=== PATIENT | male | born 1950 | race Caucasian/White ===

== ENCOUNTER 2017-08-01 18:59 | Emergency (ER) | payer BC ==
[2017-08-01 19:53] VITALS: O2SAT 95
[2017-08-01] MEDS ORDERED: CIPROFLOXACIN 500 MG TAB PO ONE (20:27)
--- NOTE | 2017-08-01 20:32 | ED.PDOC ---
History of Present Illness - General Chief Complaint: Problem Stated Complaint: blood in urine, no pain Time Seen by Provider: 08/01/17 19:23 Source: patient Exam Limitations: no limitations - History of Present Illness Initial Comments: The patient is a 66-year-old male presenting to the emergency room secondary to one day of hematuria. He has apparently had 4 or 5 episodes previously over the last 1-2 years. Hematuria is painless and very limited. He really only notices blood at the end of his void. No back pain. He reported his last PSA was around 2. He does not see urology. He is not having any difficulty voiding. He is not having urinary frequency. He does take saw palmetto. Timing/Duration: unsure Severity: mild Improving Factors: nothing Worsening Factors: nothing Associated Symptoms: denies symptoms Allergies/Adverse Reactions: Allergies NO KNOWN ALLERGY Allergy (Verified 08/01/17 19:53) Home Medications: Ambulatory Orders Ciprofloxacin [Cipro] 500 mg PO BID #20 tab 08/01/17 Lisinopril 40 mg PO DAILY 08/01/17 Review of Systems - Review of Systems Constitutional: States: no symptoms reported EENTM: States: no symptoms reported Respiratory: States: no symptoms reported Cardiology: States: no symptoms reported Gastrointestinal/Abdominal: States: no symptoms reported Genitourinary: States: see HPI Musculoskeletal: States: no symptoms reported Skin: States: no symptoms reported Neurological: States: no symptoms reported Endocrine: States: no symptoms reported All other Systems: No Change from Baseline Past Medical History (General) - Patient Medical History Hx Asthma: No Hx of COPD: No Hx Cardiac Disorders: No Hx Congestive Heart Failure: No Hx Hypertension: Yes Hx Diabetes: No Hx Cancer: Yes - bowels - Vaccination History Hx Tetanus, Diphtheria Vaccination: Yes Hx Influenza Vaccination: No - Social History Hx Tobacco Use: No Hx Chewing Tobacco Use: Yes Hx Alcohol Use: Yes Hx Physical Abuse: No Hx Emotional Abuse: No Hx Suspected Abuse: No Family Medical History - Family History Mother Family History: No Known Physical Exam - Physical Exam General Appearance: Alert, Comfortable, No apparent distress Eye Exam: bilateral normal Ears, Nose, Throat: hearing grossly normal Neck: full range of motion Respiratory: no respiratory distress, no accessory muscle use Cardiovascular/Chest: normal peripheral pulses, no edema Peripheral Pulses: radial,right: 2+, radial,left: 2+ Rectal Exam: deferred Back Exam: no CVA tenderness Extremity: normal range of motion, non-tender, normal inspection, no pedal edema , normal capillary refill 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 The patient has apparently had several episodes in the past. The patient urinalysis appears fairly clear today with the exception of the red blood cells. urine culture is being set up. He is empirically going to be placed on ciprofloxacin 500 twice a day for 10 days. He is going to hold his aspirin. He does need to follow up with his primary care doctor towards the end of this week for a repeat urinalysis. He should probably be set up through his primary care doctor with a urologist of his choice for further evaluation of the hematuria possibly including a cystoscopy. ER warnings were given. - Results/Orders Results/Orders: Laboratory Tests 08/01/17 19:35 Urine Color Other Urine Appearance Clear Urine pH 6.0 Ur Specific [place] <= 1.005 Urine Protein Negative Urine Glucose (UA) Negative Urine Ketones Negative Urine Blood Large H Urine Nitrite Negative Urine Bilirubin Negative Urine Urobilinogen 0.2 Ur Leukocyte Esterase Negative Urine RBC 10-20 H Urine WBC 0-1 Ur Epithelial Cells 0 Urine Bacteria Rare Departure - Departure Clinical Impression: Hematuria Qualifiers: Hematuria type: gross Qualified Code(s): R31.0 - Gross hematuria Disposition: Discharge to Home or Self Care Condition: Fair Departure Forms: ED Discharge - Pt. Copy, Patient Portal Self Enrollment Instructions: DI for Hematuria Diet: regular diet Activity: increase activity as tolerated Referrals: Abimael Hermosillo MD [Primary Care Provider] - 1-2 Weeks Prescriptions: Ciprofloxacin [Cipro] 500 mg PO BID #20 tab Home Medications: Ambulatory Orders Ciprofloxacin [Cipro] 500 mg PO BID #20 tab 08/01/17 Lisinopril 40 mg PO DAILY 08/01/17 Additional Instructions: the patient is a 66-year-old male presenting to the emergency room secondary to mild painless hematuria. The patient has apparently had several episodes in the past. The patient urinalysis appears fairly clear today with the exception of the red blood cells. urine culture is being set up. He is empirically going to be placed on ciprofloxacin 500 twice a day for 10 days. He is going to hold his aspirin. He does need to follow up with his primary care doctor towards the end of this week for a repeat urinalysis. He should probably be set up through his primary care doctor with a urologist of his choice for further evaluation of the hematuria possibly including a cystoscopy. ER warnings were given.
[2017-08-01 20:49] VITALS: BP 139/89; TEMP 97.8
== END 2017-08-01 20:50 | disposition home or self-care (01) ==
LOC: ER 18:59
DX: R31.0 Gross hematuria (principal); I10 Essential (primary) hypertension

== ENCOUNTER → 2017-08-13 | Outpatient (CLI) | payer MEDICARE ==
--- NOTE | 2017-08-15 05:50 | US ---
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 Findings: The right kidney is normal in size and contour. Renal cortical thinning as well as increased echogenicity. There are no masses, calculi, or hydronephrosis. The left kidney is normal in size and contour. Renal cortical thinning as well as increased echogenicity. Heterogeneous soft tissue echogenic lesion measuring 4.0 x 3.9 cm seen within the interpolar left kidney. Recommend further evaluation with renal mass protocol as a renal neoplasm such as renal cell carcinoma could have this appearance. No hydronephrosis or calculi. There are no bladder calculi, masses, or focal wall thickening. Impression: 1. Potential solid renal mass seen within the left kidney. Recommend further evaluation with CT or MRI renal mass protocol for further evaluation. 2. Findings of medical renal disease. No stones or hydronephrosis seen. Electronically signed by: Nathan Israel MD 08/15/2017 5:48 AM AUTO BODY CUSTOMIZER
== END | disposition home or self-care (01) ==
LOC: US 13:25
PROVIDERS: ATTEND Emergency Medicine
DX: N30.40 Irradiation cystitis without hematuria (principal)

== ENCOUNTER → 2017-09-08 | Outpatient (CLI) | payer MEDICARE ==
--- NOTE | 2017-09-10 07:44 | CT ---
EXAM DESCRIPTION: Abdomen/Pelvis w/wo Contrast CLINICAL HISTORY: HEMATURIA COMPARISON: None Available TECHNIQUE: CT of the abdomen and Pelvis was performed without IV contrast. This exam was performed according to our departmental dose-optimization program, which includes automated exposure control, adjustment of the mA and/or kV according to patient size and/or use of iterative reconstruction technique. FINDINGS: There are 3 tiny nonobstructing right renal calculi, but no additional left or right-sided urinary tract calculus, hydronephrosis or perinephric inflammation is present. There is no bladder wall thickening or bladder calcification. The prostate is enlarged, measuring approximately 6.7 cm transverse diameter with mass effect on the bladder floor. Following IV contrast administration, a 2.9 cm exophytic cyst is noted in the mid right kidney. There are 2 smaller round low density lesions in the left kidney, both too small to accurately characterize but probably representing cysts. Delayed postcontrast images confirm bilateral renal contrast excretion without collecting system filling defect. The lung bases are unremarkable. No pneumoperitoneum, ascites or adenopathy. There are few tiny round low density lesions in the left hepatic lobe, too small to characterize but also likely representing cysts. The liver, spleen, pancreas and adrenals are unremarkable. No dilated small bowel loops. No colonic wall thickening. There are degenerative changes in the lumbar spine at multiple levels with grade 1 anterolisthesis at L4-5 also likely of degenerative origin. IMPRESSION: Several tiny nonobstructing right renal calculi, but no additional urinary tract calculus, hydronephrosis or perinephric inflammation. 2.9 cm right renal cyst with additional smaller low-density lesions in the left kidney, incompletely characterized but likely representing cysts. No CT evidence of solid 4 cm left renal mass to correlate with findings from recent ultrasound, and findings from that exam may be related to lobulated contour of the left kidney. Follow-up ultrasound in 6-9 months is recommended to document stability. Enlarged prostate resulting mass effect on the bladder floor without bladder wall thickening. Correlation with serum PSA evaluation is recommended. Electronically signed by: Mitchel Gaming MD 09/10/2017 7:43 AM HOUSING INSPECTOR
== END ==
LOC: CT 16:35
PROVIDERS: ATTEND Urology
DX: R31.0 Gross hematuria (principal); N20.0 Calculus of kidney; N28.1 Cyst of kidney, acquired; N40.0 Benign prostatic hyperplasia without lower urinary tract symptoms

== ENCOUNTER 2018-02-08 22:04 | Emergency (ER) | payer MEDICARE, SELFPAY ==
[2018-02-08] MEDS ORDERED: TETRACAINE HCL 0.5% OPHTH SOL 1 DROP OPHTH ONE (22:05)
[2018-02-08] MEDS ORDERED: GENTAMICIN 0.3% OPHTH SOL 1 DROP OPHTH ONE (22:05)
[2018-02-08 22:26] VITALS: BP 145/97; TEMP 98.1; O2SAT 93
--- NOTE | 2018-02-08 22:52 | ED.PDOC ---
History of Present Illness - General Chief Complaint: Eye Problems Stated Complaint: thinks he has tin in left eye Time Seen by Provider: 02/08/18 22:17 Source: patient Exam Limitations: no limitations - History of Present Illness Initial Comments: the patient is a 67-year-old male presenting to the emergency room secondary to getting a piece of metal in his left eye just prior to arrival. He was cutting on some tin when this happened. He reports it scratches his upper eyelid when he closes it.o other injuries. Allergies/Adverse Reactions: Allergies NO KNOWN ALLERGY Allergy (Verified 02/08/18 22:23) Home Medications: Ambulatory Orders Lisinopril 40 mg PO DAILY 08/01/17 Blue Pill- Enlarged Prostate 02/08/18 Gentamicin 0.3% Ophth Oint 0.5 inch OPHTH Q8H 7 Days appli 02/08/18 Review of Systems - Review of Systems Constitutional: States: no symptoms reported EENTM: States: see HPI Respiratory: States: no symptoms reported Cardiology: States: no symptoms reported Gastrointestinal/Abdominal: States: no symptoms reported Genitourinary: States: no symptoms reported Musculoskeletal: States: no symptoms reported Skin: States: no symptoms reported Neurological: States: no symptoms reported Endocrine: States: no symptoms reported All other Systems: No Change from Baseline Past Medical History (General) - Patient Medical History Hx Seizures: No Hx Stroke: No Hx Dementia: No Hx Asthma: No Hx of COPD: No Hx Cardiac Disorders: No Hx Congestive Heart Failure: No Hx Pacemaker: No Hx Hypertension: Yes Hx Thyroid Disease: No Hx Diabetes: No Hx Gastroesophageal Reflux: No Hx Renal Disease: No Hx Cancer: Yes - bowels Hx of HIV: No Hx Hepatitis C: No Hx MRSA: No Surgical History: no surgical history - Vaccination History Hx Tetanus, Diphtheria Vaccination: Yes Hx Influenza Vaccination: No - Social History Hx Tobacco Use: Yes Hx Chewing Tobacco Use: Yes Hx Alcohol Use: Yes Hx Physical Abuse: No Hx Emotional Abuse: No Hx Suspected Abuse: No Family Medical History - Family History Mother Family History: No Known Physical Exam - Physical Exam General Appearance: Alert, Comfortable, No apparent distress Eye Exam: bilateral normal - the patient has ashard of mental just medial to the pupil in the cornea of the left eye Ears, Nose, Throat: hearing grossly normal, normal ENT inspection Neck: supple Respiratory: no respiratory distress, no accessory muscle use Cardiovascular/Chest: normal peripheral pulses, no edema Peripheral Pulses: radial,right: 2+, radial,left: 2+ Rectal Exam: deferred Extremity: normal range of motion, no pedal edema, normal capillary refill 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 A small bur was required to remove the piece of metal. Gentamicin ophthalmic solution was applied subsequently. tetracaine drops were used initially. The patient needs to continue the gentamicin drops 2 drops every 4 hours for the next 7 days. He needs to wear glasses to keep the eye from drying out. Additionally preservative free saline drops can be used in between the gentamicin dosings. ER warnings were given for any significant worsening. Anti-inflammatories such as Advil or Aleve can be used for pain. he does have a long-standing ocular symptoms and does need to follow- up with ophthalmology as soon as possible. Departure - Departure Clinical Impression: Corneal injury Qualifiers: Encounter type: initial encounter Laterality: left Qualified Code(s): S05.8X2A - Other injuries of left eye and orbit, initial encounter Foreign body, eye Qualifiers: Encounter type: initial encounter Laterality: left Qualified Code(s): T15.92XA - Foreign body on external eye, part unspecified, left eye, initial encounter Disposition: Discharge to Home or Self Care Condition: Fair Departure Forms: ED Discharge - Pt. Copy, Patient Portal Self Enrollment Instructions: DI for Corneal Abrasion Diet: regular diet Activity: increase activity as tolerated Referrals: CAT LOPES [Primary Care Provider] - 1-2 Weeks Prescriptions: Gentamicin 0.3% Ophth Oint 0.5 inch OPHTH Q8H 7 Days appli Home Medications: Ambulatory Orders Lisinopril 40 mg PO DAILY 08/01/17 Blue Pill- Enlarged Prostate 02/08/18 Gentamicin 0.3% Ophth Oint 0.5 inch OPHTH Q8H 7 Days appli 05/07/18 Additional Instructions: the patient is a 67-year-old male presenting due to a piece of metal in the cornea of the left eye. A small bur was required to remove the piece of metal. Gentamicin ophthalmic solution was applied subsequently. tetracaine drops were used initially. The patient needs to continue the gentamicin drops 2 drops every 4 hours for the next 7 days. He needs to wear glasses to keep the eye from drying out. Additionally preservative free saline drops can be used in between the gentamicin dosings. ER warnings were given for any significant worsening. Anti-inflammatories such as Advil or Aleve can be used for pain. he does have a long-standing ocular symptoms and does need to follow- up with ophthalmology as soon as possible.
== END 2018-02-08 23:15 | disposition home or self-care (01) ==
LOC: ER 22:04
DX: T15.92XA Foreign body on external eye, part unspecified, left eye, initial encounter (principal); I10 Essential (primary) hypertension; Z85.89 Personal history of malignant neoplasm of other organs and systems; Z87.891 Personal history of nicotine dependence; X58.XXXA Exposure to other specified factors, initial encounter; Y92.9 Unspecified place or not applicable

== ENCOUNTER 2019-07-17 18:56 | Emergency (ER) | payer MEDICARE ==
[2019-07-17 19:45] VITALS: BP 134/98; TEMP 98.6; O2SAT 99
--- NOTE | 2019-07-17 20:05 | ED.PDOC ---
History of Present Illness - General Chief Complaint: Upper Extremity Injury Stated Complaint: laceration to right hand Time Seen by Provider: 07/17/19 19:54 - History of Present Illness Initial Comments: laceration on the R thumb on the ulnar surface Occurred: just prior to arrival Pain - Upper Extremity: severe: Hand, right Method of Injury: incised Improving Factors: nothing Worsening Factors: nothing Allergies/Adverse Reactions: Allergies NO KNOWN ALLERGY Allergy (Verified 02/08/18 22:23) Home Medications: Ambulatory Orders Lisinopril 40 mg PO DAILY 08/01/17 Blue Pill- Enlarged Prostate 02/08/18 Gentamicin 0.3% Ophth Oint 0.5 inch OPHTH Q8H 7 Days appli 02/08/18 Sulfamethoxazole-Trimethoprim [Bactrim Ds 800-160 mg] 1 tab PO BID #10 tab 07/17/19 Review of Systems - Review of Systems Constitutional: States: no symptoms reported EENTM: States: no symptoms reported Respiratory: States: no symptoms reported Cardiology: States: no symptoms reported Genitourinary: States: no symptoms reported Musculoskeletal: States: no symptoms reported Skin: States: no symptoms reported, see HPI Neurological: States: no symptoms reported Endocrine: States: no symptoms reported Past Medical History (General) - Patient Medical History Hx Seizures: No Hx Stroke: No Hx Dementia: No Hx Asthma: No Hx of COPD: No Hx Cardiac Disorders: No Hx Congestive Heart Failure: No Hx Pacemaker: No Hx Hypertension: Yes Hx Thyroid Disease: No Hx Diabetes: No Hx Gastroesophageal Reflux: No Hx Renal Disease: No Hx Cancer: Yes Hx of HIV: No Hx Hepatitis C: No Hx MRSA: No Surgical History: appendectomy - Vaccination History Hx Tetanus, Diphtheria Vaccination: No Hx Influenza Vaccination: No Hx Pneumococcal Vaccination: No Immunizations Up to Date: No - Social History Hx Tobacco Use: Yes Hx Chewing Tobacco Use: Yes Hx Alcohol Use: Yes Hx Physical Abuse: No Hx Emotional Abuse: No Hx Suspected Abuse: No Family Medical History - Family History Mother Family History: No Known Physical Exam - Physical Exam General Appearance: Alert Eyes, Ears, Nose, Throat Exam: normal ENT inspection Back Exam: no CVA tenderness Shoulder Exam: non-tender Wrist Exam: normal inspection, non-tender Hand Exam: soft tissue tenderness - small laceration Neuro/Tendon: normal sensation, normal motor functions Mental Status: alert, oriented x 3 Departure - Departure Clinical Impression: Laceration of hand Time of Disposition: 20:05 Disposition: Discharge to Home or Self Care Condition: Good Departure Forms: ED Discharge - Pt. Copy, Patient Portal Self Enrollment Diet: resume usual diet Activity: increase activity as tolerated, walking as tolerated Referrals: CAT LOPES [Primary Care Provider] - 1-2 Weeks Prescriptions: Sulfamethoxazole-Trimethoprim [Bactrim Ds 800-160 mg] 1 tab PO BID #10 tab Home Medications: Ambulatory Orders Lisinopril 40 mg PO DAILY 08/01/17 Blue Pill- Enlarged Prostate 02/08/18 Gentamicin 0.3% Ophth Oint 0.5 inch OPHTH Q8H 7 Days appli 02/08/18 Sulfamethoxazole-Trimethoprim [Bactrim Ds 800-160 mg] 1 tab PO BID #10 tab 07/17/19
--- NOTE | 2019-07-17 20:07 | RAD ---
EXAM DESCRIPTION: Hand,Right 3 Views CLINICAL HISTORY: 68 years Male possible metal or wood in laceration COMPARISON: None TECHNIQUE: Three images of the right hand were obtained. FINDINGS: Multiple bone fragments in region of terminal tuft distal phalanx right thumb as well as DIP joints second finger, DIP joint third finger, PIP joint fourth finger, DIP joint fifth finger, PIP joint second finger and adjacent to radial aspect distal radius. No radiopaque foreign bodies identified. No acute fractures otherwise identified. IMPRESSION: No radiopaque foreign body seen. Multiple bone fragments likely related to more remote trauma however clinical correlation would be needed to ask superimposed acute fracture. Degenerative changes also seen. Electronically signed by: Kim Beckford MD 07/17/2019 8:05 PM CDT
[2019-07-17] MEDS ORDERED: TETANUS,DIPHTHERIA,PERTUSSIS 1 EA SYG IM ONE ×2 (20:28→20:29)
== END 2019-07-17 20:36 | disposition home or self-care (01) ==
LOC: ER 18:56
DX: S61.011A Laceration without foreign body of right thumb without damage to nail, initial encounter (principal); I10 Essential (primary) hypertension; Y93.89 Activity, other specified; X58.XXXA Exposure to other specified factors, initial encounter; Y92.9 Unspecified place or not applicable; Z85.9 Personal history of malignant neoplasm, unspecified; Z87.891 Personal history of nicotine dependence; Z79.899 Other long term (current) drug therapy

== ENCOUNTER → 2019-08-16 | Outpatient (CLI) | payer MEDICARE ==
--- NOTE | 2019-08-16 19:32 | US ---
EXAM DESCRIPTION: Soft Tissue,Extremity: ULTRASOUND. CLINICAL HISTORY: 68 years Male RUPTURE OF TENDON OF BICEPS COMPARISON: None Available. TECHNIQUE: Transcutaneous scanning: Arellano-scale and Doppler modes. FINDINGS: Marked enlargement of the biceps muscle with complex appearance of edema, disrupted muscle fibers, and small cystlike fluid collections. The elongated short head biceps tendon appear intact at the level of the upper humerus. The distal tendon also appears intact near the radial insertion. Minimal free fluid in the soft tissues. No abnormal vascular flow. IMPRESSION: Partial tear of the mid biceps muscle with proximal and distal tendons intact. If continued dysfunction or progressive dysfunction exists, consider follow-up MRI scan of the biceps muscle to include the shoulder and elbow. Electronically signed by: Terry Ball MD 08/16/2019 7:30 PM SPOOL WINDER
== END ==
LOC: US 12:46
PROVIDERS: ATTEND Nurse Practitioner Family
DX: S46.111A Strain of muscle, fascia and tendon of long head of biceps, right arm, initial encounter (principal)

== ENCOUNTER → 2020-07-03 | Outpatient (CLI) | payer MEDICARE ==
--- NOTE | 2020-07-04 13:37 | US ---
EXAM DESCRIPTION: Renal: Ultrasound. CLINICAL HISTORY: 69 years Male RENAL MASS COMPARISON: Renal ultrasound August 2017. CT abdomen and pelvis September 2017 TECHNIQUE: Transcutaneous scanning: Two-dimensional and Doppler modes. FINDINGS: Right kidney measures 10.1 x 5.3 x 6.2 cm; volume 171.6 ml. Mid-renal cortical thickness normal. . increased cortical echogenicity equal to the liver. No hydronephrosis No echogenic stones. 3.2 x 3.0 x 2.6 cm cyst upper pole. Smooth smooth contour of the kidney with no perinephric fluid. Normal vascularity. Proximal ureter not visualized.. Left kidney measures number cm; volume 100 ml. Mid-renal cortical thicknessnumber. echogenicity. No hydronephrosis. No echogenic stones. 1.2 x 1.1 x 1.1 cm cyst in the lower pole. Question of a lobulated hypoechoic mass in the mid cortex with a cystic component and focal echogenic objects but no definite shadowing. Dimensions are 3.6 x 3.0 x 2.9 cm. Otherwise normal contour of the kidney with no perinephric fluid. Normal vascularity.. Proximal ureter not visualized.. Urinary bladder was visualized. Slight mass effect on the base. Angles of the mass with the bladder compartment suggests an extrinsic mass such as prostate gland. The mass measures 4.7 x 4.5 x 4.3 cm with isoechoic and hypoechoic regions. Prevoid volume of bladder 278.5 mL. Ureteral jet in the bladder not seen by color Doppler. Patient did not void. Abdominal aorta: Normal caliber from the proximal segment to the distal bifurcation. IMPRESSION: 1. Possible lobulated hypoechoic mass in the mid cortex of the left kidney. Similar mass seen on ultrasound almost 3 years ago, which was not demonstrated on CT scan. Consider follow-up CT scan renal mass protocol, without and with IV contrast. Small cyst in the left kidney. 3.2 cm cyst in the right kidney. Bilateral cortical thinning with increased echogenicity equal to or greater than the liver. 2. Extrinsic mass impressing on the base of the urinary bladder is most likely the prostate gland. Correlate with clinical findings and PSA. Electronically signed by: Terry Ball MD 07/04/2020 1:35 PM CDT
== END ==
LOC: US 13:43
PROVIDERS: ATTEND Urology
DX: N40.1 Benign prostatic hyperplasia with lower urinary tract symptoms (principal); R31.0 Gross hematuria; D30.02 Benign neoplasm of left kidney; N28.1 Cyst of kidney, acquired; R19.09 Other intra-abdominal and pelvic swelling, mass and lump

== ENCOUNTER 2020-11-05 02:19 | Emergency (ER) | payer MEDICARE ==
--- NOTE | 2020-11-05 02:34 | ED.PDOC ---
History of Present Illness - General Time Seen by Provider: 11/05/20 02:26 Source: patient, RN notes reviewed, Vital Signs reviewed, EMS notes reviewed, EMS, old records Exam Limitations: no limitations - History of Present Illness Initial Comments: 70 yo pleasant male comes in via EMS with chest pain. States he was awake about 2.5 hours ago when he developed chest pain that started on the right sided and radiates to the left chest. Was sharp, pressure like, radiates to back. no associated with diaphoresis or shortness of breath. Pain got progressively worse so called EMS. Pain started to improve, ems gave patient aspirin and nitro x 1 which patient feels this did help. Never had any episodes like this prior. no current chest pain. Did have some nausea with it. Patient had eaten a double cheese burger about 2 hours prior to onset of symptoms. Timing/Duration: 1-3 hours Severity/Quality: moderate, sharp Location: other - right lower chest Chest Pain Radiation: back Activities at Onset: none Prior Chest Pain/Cardiac Workup: no prior chest pain, no prior cardiac workup Nitro Today/Relief: 0.4 mg x 1, provided by EMS Aspirin Treatment Today: 325 mg x 1, provided by EMS Allergies/Adverse Reactions: Allergies NO KNOWN ALLERGY Allergy (Verified 11/05/20 02:40) Home Medications: Ambulatory Orders Lisinopril 40 mg PO QAM 08/01/17 Finasteride 5 mg PO QPM 11/05/20 Review of Systems - Review of Systems Constitutional: Denies: chills, fever EENTM: Denies: blurred vision, throat pain Respiratory: Denies: cough, short of breath Cardiology: States: chest pain. Denies: palpitations, syncope Gastrointestinal/Abdominal: States: nausea. Denies: abdominal pain, diarrhea, vomiting Genitourinary: Denies: frequency Musculoskeletal: Denies: back pain, joint pain, muscle pain Skin: Denies: rash Neurological: Denies: headache, numbness, weakness Endocrine: Denies: unexplained weight gain, unexplained weight loss Hematologic/Lymphatic: Denies: blood clots, easy bleeding, easy bruising Past Medical History (General) - Patient Medical History Hx Seizures: No Hx Stroke: No Hx Dementia: No Hx Asthma: No Hx of COPD: No Hx Cardiac Disorders: No Hx Congestive Heart Failure: No Hx Pacemaker: No Hx Hypertension: Yes Hx Thyroid Disease: No Hx Diabetes: No Hx Gastroesophageal Reflux: No Hx Renal Disease: No Hx Cancer: Yes Hx of HIV: No Hx Hepatitis C: No Hx MRSA: No Hx Other PMH: Yes - BPH - Vaccination History Hx Tetanus, Diphtheria Vaccination: No Hx Influenza Vaccination: No Hx Pneumococcal Vaccination: No - Social History Cigarettes Packs Per Day: 0 Hx Chewing Tobacco Use: Yes Hx Alcohol Use: Yes Hx Substance Use: No Hx Physical Abuse: No Hx Emotional Abuse: No Hx Suspected Abuse: No Family Medical History - Family History Mother Hx Cardiac Disease: Yes Brother Hx Cardiac Disease: Yes Physical Exam - Physical Exam General Appearance: Alert, Comfortable, No apparent distress, Well Developed, Well Groomed, Well Hydrated, Well Nourished Eyes, Ears, Nose, Throat Exam: normal ENT inspection Neck: non-tender, full range of motion, supple, normal inspection Respiratory: chest non-tender, lungs clear, normal breath sounds, no respiratory distress, no accessory muscle use Cardiovascular/Chest: normal peripheral pulses, regular rate, rhythm, no edema, no gallop, no JVD Peripheral Pulses: radial,right: 2+, radial,left: 2+ Gastrointestinal/Abdominal: normal bowel sounds, non tender, soft, no organomegaly, no pulsatile mass Rectal Exam: deferred Extremity: normal range of motion, non-tender, normal inspection, no pedal edema, no calf tenderness, normal capillary refill Neurologic: no motor/sensory deficits, alert, normal mood/affect, oriented x 3 Skin Exam: normal color, warm/dry Progress - Progress Progress: 11/05/20 02:42 partial ddx: cad, gastritis, choelithiasis, pulmonary, PE others others considered. patient received 325 mg aspirin and 1 nitro from EMS. Currently chest pain free. Cardiac score 3 11/05/20 02:44 Bedside US shows gallbladder without stones, I do appreciate sludge. I suspect the elevated lft are secondary to hepatic steatosis, recommend follow up with his pcp. 11/05/20 02:45 EKG STAT Laboratory Results WBC 7.7 K/mm3 (4.8-10.8) 11/05/20 02:10 RBC 4.75 M/mm3 (4.70-6.10) 11/05/20 02:10 Hgb 14.9 gm/dL (14.0-18.0) 11/05/20 02:10 Hct 44.2 % (42.0-52.0) 11/05/20 02:10 MCV 93.0 fl (80.0-94.0) 11/05/20 02:10 MCH 31.4 pg (27.0-31.0) H 11/05/20 02:10 MCHC 33.8 g/dL (33.0-37.0) 11/05/20 02:10 RDW 13.5 % (11.5-14.5) 11/05/20 02:10 Plt Count 226 K/mm3 (130-400) 11/05/20 02:10 MPV 8.1 fl (7.40-10.4) 11/05/20 02:10 Absolute Neuts (auto) 3.90 K/uL (1.8-6.8) 11/05/20 02:10 Absolute Lymphs (auto) 2.80 K/uL (1.0-3.4) 11/05/20 02:10 Absolute Monos (auto) 0.80 K/uL (0.2-0.8) 11/05/20 02:10 Absolute Eos (auto) 0.10 K/uL (0.0-0.4) 11/05/20 02:10 Absolute Basos (auto) 0.00 K/uL (0.0-0.1) 11/05/20 02:10 Neutrophils % 51.4 % (42.0-78.0) 11/05/20 02:10 Lymphocytes % 36.3 % (20.0-50.0) 11/05/20 02:10 Monocytes % 10.2 % (2.0-9.0) H 11/05/20 02:10 Eosinophils % 1.7 % (1.0-5.0) 11/05/20 02:10 Basophils % 0.4 % (0.0-2.0) 11/05/20 02:10 PT 10.4 SECONDS (9.0-10.9) 11/05/20 02:10 INR 1.05 (0.9-1.15) 11/05/20 02:10 PTT (SP) 24.5 SECONDS (21.8-31.6) 11/05/20 02:10 D-Dimer, Quantitative 367.0 ng/ml (131-400) 11/05/20 02:10 Sodium 142 mmol/L (135-145) 11/05/20 02:10 Potassium 3.9 mmol/L (3.6-5.0) 11/05/20 02:10 Chloride 104 mmol/L (101-111) 11/05/20 02:10 Carbon Dioxide 30 mmol/L (21-31) 11/05/20 02:10 Anion Gap 11.9 (12-18) L 11/05/20 02:10 BUN 20 mg/dL (7-18) H 11/05/20 02:10 Creatinine 0.93 mg/dL (0.6-1.3) 11/05/20 02:10 BUN/Creatinine Ratio 21.5 (10-20) H 11/05/20 02:10 Random Glucose 147 mg/dL (70-105) H 11/05/20 02:10 Serum Osmolality 288.4 mOsm/L (275-295) 11/05/20 02:10 Calcium 9.6 mg/dL (8.4-10.2) 11/05/20 02:10 Magnesium 2.0 mg/dL (1.8-2.5) 11/05/20 02:10 Total Bilirubin 1.2 mg/dL (0.2-1.0) H 11/05/20 02:10 AST 109 IU/L (10-42) H 11/05/20 02:10 ALT 92 IU/L (10-60) H 11/05/20 02:10 Alkaline Phosphatase 48 IU/L (42-121) 11/05/20 02:10 Troponin I < 0.02 ng/mL (0.01-0.05) 11/05/20 04:17 B-Natriuretic Peptide < 15.0 pg/ml (0-100) 11/05/20 02:10 Serum Total Protein 7.8 gm/dL (6.4-8.2) 11/05/20 02:10 Albumin 4.5 g/dl (3.2-5.5) 11/05/20 02:10 Globulin 3.3 gm/dL (2.3-3.5) 11/05/20 02:10 Albumin/Globulin Ratio 1.4 (1.1-1.9) 11/05/20 02:10 11/05/20 04:39 - Results/Orders Results/Orders: The data reviewed when caring for this patient included: nurse notes, prior records, etc. The history and assessments from nurses notes were reviewed and considered, and the patient's home medication list was also reviewed and considered. My assessment and the results of testing completed here in the ED were discussed with the patient/family. All questions were answered, and they express understanding of my assessment and the plan. They have been instructed to return if their symptoms worsen, and have been asked to follow up with their primary care physician to recheck today's presenting complaint. Strict return precautions given. patient discharged home with daughter in stable condition. Lashonda Garcia DO #[id number] - EKG/XRAY/CT EKG: Sinus - HR 87 Comments: questionable LAFB, normal intervals, no acute ischemic changes noted. XRAY: chest - low lung volumes, atelectasis camila Lower lobes otherwise no acute cardiopulmonary pathology. Departure - Departure Clinical Impression: Atelectasis, Elevated LFTs Chest pain Qualifiers: Chest pain type: unspecified Qualified Code(s): R07.9 - Chest pain, unspecified Time of Disposition: 04:36 Disposition: Discharge to Home or Self Care Instructions: Atelectasis, DASH Diet, Chest Pain (DC) Diet: low salt diet Referrals: [facility] [Primary Care Provider] - 1-2 Days AMANDA SIBLEY MD [Consulting Staff] - 1-5 Days Home Medications: Ambulatory Orders Lisinopril 40 mg PO QAM 08/01/17 Finasteride 5 mg PO QPM 11/05/20
--- NOTE | 2020-11-05 02:57 | RAD ---
EXAM: XR Chest, 1 View CLINICAL HISTORY: The patient is 70 years old and is Male; cp TECHNIQUE: Frontal view of the chest. COMPARISON: No relevant prior studies available. FINDINGS: Lungs: Low lung volumes bilaterally. Haziness in the lung bases which may be due to atelectasis or airspace disease. Pleural space: Unremarkable. No pneumothorax. Heart: Unremarkable. Mediastinum: Unremarkable. Bones/joints: Unremarkable. IMPRESSION: 1. Low lung volumes bilaterally. 2. Haziness in the lung bases which may be due to atelectasis or airspace disease. Electronically signed by: Arnie Dupont MD 11/05/2020 2:55 AM [facility]
[2020-11-05] MEDS ORDERED: diphenhydrAMINE HCL 25 MG CAP PO ONE (04:15)
[2020-11-05] MEDS ORDERED: diphenhydrAMINE HCL 25 MG CAP ONE (04:17)
[2020-11-05 04:38] VITALS: BP 131/83; TEMP 98.2; O2SAT 97
== END 2020-11-05 04:47 | disposition home or self-care (01) ==
LOC: ER 02:19
DX: R07.9 Chest pain, unspecified (principal); J98.11 Atelectasis; R94.5 Abnormal results of liver function studies; I10 Essential (primary) hypertension; Z85.9 Personal history of malignant neoplasm, unspecified; Z79.899 Other long term (current) drug therapy
CPT/HCPCS: 71045; 80053; 83735; 83880; 84484; 85025; 85379; 85610; 85730; 93005; Q0163

== ENCOUNTER 2020-11-29 05:38 | Day surgery (SDC) | payer MEDICARE ==
[2020-11-29] MEDS ORDERED: LIDOCAINE 1% 10 ML VIAL INJ ONE (07:00)
[2020-11-29] MEDS ORDERED: KETOROLAC TROMETHAMINE INJ 30 MG/ML VIAL ONE (07:00)
[2020-11-29] MEDS ORDERED: MAGNESIUM SULFATE INJ 1 GM/2 ML VIAL ONE (07:00)
[2020-11-29] MEDS ORDERED: PROPOFOL 200 MG/20 ML VIAL IV ONE (07:00)
[2020-11-29] MEDS ORDERED: DEXAMETHASONE INJ 10 MG/ML VIAL ONE (07:00)
[2020-11-29] MEDS: LACTATED RINGERS 1,000 ML ONE (10:30)
[2020-11-29] MEDS ORDERED: BUPIVACAINE 0.25% W/EPI 50 ML VIAL INJ ONE (10:54)
[2020-11-29] MEDS: BUPIVACAINE 0.25% W/EPI 50 ML VIAL INJ ONE (11:09)
[2020-11-29] MEDS ORDERED: SUGAMMADEX SODIUM 200 MG/2 ML VIAL IV ONE (11:54)
[2020-11-29] MEDS ORDERED: fentaNYL CITRATE INJ 50 MCG/ML 2 ML AMP ONE (11:55)
[2020-11-29] MEDS ORDERED: FAMOTIDINE INJ 10 MG/ML VIAL IV ONE (11:55)
[2020-11-29] MEDS ORDERED: MIDAZOLAM INJ 2 MG/2 ML VIAL ONE (11:55)
[2020-11-29] MEDS ORDERED: ROCURONIUM BROMIDE 10 MG/ML VIAL ONE (11:55)
[2020-11-29] MEDS ORDERED: DEXMEDETOMIDINE HCL 200 MCG/2 ML INJ IV ONE (12:46)
--- NOTE | 2020-11-29 13:42 | OP ---
DATE OF PROCEDURE: 11/29/20 PREOPERATIVE DIAGNOSIS: 1. Symptomatic cholelithiasis. POSTOPERATIVE DIAGNOSIS: 1. Symptomatic cholelithiasis. PROCEDURE: 1. Laparoscopic cholecystectomy. SURGEON: Markel Reilly MD. ANESTHESIA: General and local. FINDINGS: Gallbladder showed some evidence of chronic scarring. There were small stones and cholesterolosis along the mucosa with some sludge. Tiny duct of Luschka was identified, posterior wall, but it was doubly clipped. COMPLICATIONS: None. ESTIMATED BLOOD LOSS: Minimal. CONDITION: Stable. PLAN: Discharge. INDICATION: As stated. PROCEDURE: General anesthesia was induced. The patient was prepped and draped in sterile fashion. Marcaine 0.5% with epinephrine was used at all incision sites. He has a previous low midline abdominal surgery from years and years ago, bowel operation, so we put the Veress needle in the midepigastric area without difficulty. There was free flow of fluid into the peritoneal cavity which was insufflated to an appropriate level with CO2 gas. We then used a Visiport in the right upper quadrant entering the abdomen without difficulty, looking around there were actually no anterior abdominal wall adhesions from his previous surgery. The umbilical port site and right upper quadrant port and subxiphoid port were placed under direct visualization without difficulty. The gallbladder fundus was easily identified. It was grasped and retracted superiorly and laterally. The infundibulum was grasped. A few chronic adhesions were taken down. The infundibular structures were dissected free. The duct and artery were clearly visualized through the triangle of Calot. Each was triply ligated. As we dissected up in the mid medial portion, we saw elongated structure, possibly an aberrant vessel or duct of Luschka. We triply ligated it. We could see a lumen that appeared most likely vascular, but possibly posterior duct of Luschka. The gallbladder was then dissected off the fossa in total and removed in the EndoCatch bag. The fossa was examined. The clips were intact. There was no bleeding or bile leakage. The area was irrigated. The aspirate was clear. The subxiphoid fascia was then closed with 0 Vicryl using the suture passer. It was airtight and non-bleeding. The remaining trocars were removed. There was no bleeding from the trocar sites. The wounds were irrigated and closed with Monocryl. Dressings were applied. He tolerated the procedure well. The patient was awakened and taken to Recovery to be discharged. #[id number] cc: DO BERE Rene
[2020-11-29 14:29] VITALS: BP 111/76; TEMP 96.7; O2SAT 99
== END 2020-11-29 14:25 | disposition home or self-care (01) ==
LOC: AMB 05:38
PROVIDERS: ATTEND Surgery
DX: K80.10 Calculus of gallbladder with chronic cholecystitis without obstruction (principal); I10 Essential (primary) hypertension; E78.00 Pure hypercholesterolemia, unspecified; Z79.899 Other long term (current) drug therapy
CPT/HCPCS: 00790; 47562; 88304; J1100; J1885; J2250; J3010; J3475; J3490; J7120